=== PATIENT | male | born 1955 | race Caucasian/White ===

== ENCOUNTER → 2016-06-24 | Outpatient (CLI) | payer OTHER ==
[2016-06-24 18:05] LABS: BLOOD UREA NITROGEN 14 mg/dl (7-18); BUN/CREATININE RATIO 14.7 (10-20); CALCIUM 9.4 mg/dl (8.5-10.1); CARBON DIOXIDE 28 mmol/L (21-32); CHLORIDE 103 mmol/L (98-107); CREATININE 0.97 mg/dl (0.60-1.40); GLUCOSE 161 mg/dl (70-99); PHOSPHORUS 3.2 mg/dl (2.5-4.9); SODIUM 137 mmol/L (136-145)
[2016-06-25 06:19] LABS: ESTIMATED AVERAGE GLUCOSE 189 mg/dl; HA1C FLAG Normal (Normal)
== END | disposition home or self-care (01) ==
LOC: C.LABMFLN 14:07
PROVIDERS: ATTEND Family Medicine
DX: E11.9 Type 2 diabetes mellitus without complications (principal)

== ENCOUNTER → 2016-10-01 | Outpatient (CLI) | payer OTHER ==
[2016-10-01 18:06] LABS: BLOOD UREA NITROGEN 16 mg/dl (7-18); CALCIUM 9.1 mg/dl (8.5-10.1); CARBON DIOXIDE 29 mmol/L (21-32); CHLORIDE 103 mmol/L (98-107); GLUCOSE 218 mg/dl (70-99); POTASSIUM 4.4 mmol/L (3.5-5.1); SODIUM 138 mmol/L (136-145)
[2016-10-01 18:09] LABS: CHOLESTEROL 172 mg/dl (0-200); CHOLESTEROL/HDL RATIO 6.9; HDL CHOLESTEROL 25 mg/dl; TRIGLYCERIDES 457 mg/dl (0-150)
[2016-10-02 06:28] LABS: ESTIMATED AVERAGE GLUCOSE 189 mg/dl; HA1C FLAG Normal (Normal)
== END | disposition home or self-care (01) ==
LOC: C.LABMFLN 16:40
PROVIDERS: ATTEND Family Medicine
DX: E78.5 Hyperlipidemia, unspecified (principal); E11.9 Type 2 diabetes mellitus without complications

== ENCOUNTER → 2017-04-01 | Outpatient (CLI) | payer OTHER ==
[2017-04-01 13:02] LABS: BASO % 0.4 %; BASO ABS # 0.03 K/uL (0-0.2); EOS % 2.2 %; EOS ABS # 0.18 K/uL (0-0.5); HEMATOCRIT 46.6 % (42-52); HEMOGLOBIN 16.8 g/dL (14.0-18.0); IG# 0.04 K/uL (0.00-0.02); LYMPH % 43.1 %; LYMPH ABS # 3.47 K/uL (1.2-3.4); MEAN CELL VOLUME 87.9 fL (80-100); MEAN CORPUSCULAR HEMOGLOBIN 31.7 pg (25-34); MEAN CORPUSCULAR HGB CONC 36.1 g/dl (32-36); MONO ABS # 0.48 K/uL (0.11-0.59); NEUT % 47.8 %; NEUT ABS # 3.85 K/uL (1.4-6.5); PLATELET COUNT 181 K/uL (130-400); RED CELL DISTRIBUTION WIDTH CV 12.2 % (11.5-14.5); WHITE BLOOD COUNT 8.05 K/uL (4.8-10.8)
[2017-04-01 13:34] LABS: HEMOGLOBIN A1C 8.2 % (4.5-5.6)
[2017-04-01 14:28] LABS: ALT/SGPT 32 U/L (12-78); AST/SGOT 15 U/L (15-37); BLOOD UREA NITROGEN 17 mg/dl (7-18); CALCIUM 8.8 mg/dl (8.5-10.1); CARBON DIOXIDE 29 mmol/L (21-32); CREATININE 1.09 mg/dl (0.60-1.40); GLUCOSE 160 mg/dl (70-99); POTASSIUM 4.2 mmol/L (3.5-5.1); SODIUM 136 mmol/L (136-145)
[2017-04-01 14:31] LABS: ALKALINE PHOSPHATASE 48 U/L (45-117); TOTAL PROTEIN 7.1 gm/dl (6.4-8.2)
== END | disposition home or self-care (01) ==
LOC: C.LABMFLN 09:00
PROVIDERS: ATTEND Family Medicine
DX: E11.21 Type 2 diabetes mellitus with diabetic nephropathy (principal)

== ENCOUNTER → 2017-06-29 | Outpatient (CLI) | payer OTHER ==
[2017-06-29 18:38] LABS: ALBUMIN 3.9 gm/dl (3.4-5.0); BLOOD UREA NITROGEN 15 mg/dl (7-18); CALCIUM 9.3 mg/dl (8.5-10.1); CARBON DIOXIDE 27 mmol/L (21-32); CREATININE 1.23 mg/dl (0.60-1.40); GLUCOSE 168 mg/dl (70-99); PHOSPHORUS 3.4 mg/dl (2.5-4.9); POTASSIUM 4.1 mmol/L (3.5-5.1); SODIUM 136 mmol/L (136-145)
[2017-06-30 07:38] LABS: HEMOGLOBIN A1C 7.8 % (4.5-5.6)
== END | disposition home or self-care (01) ==
LOC: C.LABMFLN 16:36
PROVIDERS: ATTEND Family Medicine
DX: E11.9 Type 2 diabetes mellitus without complications (principal)

== ENCOUNTER → 2017-10-21 | Outpatient (CLI) | payer OTHER ==
--- NOTE | 2017-10-26 15:00 | EXERCISE STRESS ECHO ---
*NOTICE TO RECEIVING LIBERTARIAN AGENCY This information is strictly Confidential and protected under [place] law. [place] law prohibits you from making any further disclosure of this information unless further disclosure is expressly permitted by the written consent of the person to whom it pertains or is authorized by law. A general authorization for the release of medical or other information is not sufficient for this purpose. Hospital accepts no responsibility if the information is made available to any other person, INCLUDING THE PATIENT. Interpretation Summary * Name: JUNE JUNIOR Study Date: 10/21/2017 11:00 AM BP: 155/94 mmHg * Patient Location: [facility] HR: 101 * : 1955 (M/d/yyyy) Gender: Male Height: 70 in * Age: 62 yrs Ethnicity: CA Weight: 255 lb * Ordering Physician: Ashely Gallardo * Referring Physician: Ashely Gallardo * Performed By: Jia Orona RDCS * * Reason For Study: Shortness of Breath * BSA: 2.3 m2 * -- Conclusions -- * Left ventricular systolic function is normal. * Grade I diastolic dysfunction, (abnormal relaxation pattern). * Normal exercise echocardiogram without evidence of inducible ischemia * Hypertensive response to exercise Procedure Details * ECHOEX, CPT #[id number] * ECHO DOPPLER, CPT #[id number] * ECHO COLOR FLOW, CPT #[id number] Left Ventricular Findings with Stress * Normal exercise echocardiogram without evidence of inducible ischemia Hypertensive response to exercise Left Ventricle * The left ventricle is normal in size. * There is normal left ventricular wall thickness. * Ejection Fraction = 55-60%. * Left ventricular systolic function is normal. * Grade I diastolic dysfunction, (abnormal relaxation pattern). * The left ventricular wall motion is normal at rest. Right Ventricle * The right ventricle is normal in size and function. Atria * The left atrial size is normal. * Right atrial size is normal. Mitral Valve * The mitral valve anatomy is normal. * Significant mitral regurgitation is absent. Tricuspid Valve * The tricuspid valve is not well visualized, but is grossly normal. Aortic Valve * The aortic valve is normal in structure and function. * The aortic valve is trileaflet. * No hemodynamically significant valvular aortic stenosis. * There is no significant aortic regurgitation. Pulmonic Valve * The pulmonic valve is not well visualized. Great Vessels * The aortic root is normal size. Pericardium * There is no pericardial effusion. Stress Parameters * Normal baseline electrocardiogram. * Stress ECG: No ST changes. No arrhythmias. * The stress portion of this study was personally supervised by the undersigned interpreting physician. * Rest heart rate was '101' BPM. * Rest blood pressure was '155/94' * Maximum heart rate achieved was 148 bpm. * Maximum heart rate was 92 % of maximum age-predicted heart rate. * Maximum blood pressure was '210/85' * Total exercise time was '06:11' * Maximum exercise MET level achieved was '7.20' METS * Maximum treadmill speed was '3.40' miles per hour. * Maximum treadmill elevation was '14.00'% grade. Left Ventricular Findings with Stress * Baseline EKG was normal There are no significant ST or T-wave changes during exercise recovery Exercise terminated due to fatigue There was no chest pain reported Baseline echocardiogram was normal with normal LV function There was normal augmentation of all segments without development of regional wall motion abnormalities at peak exertion Khan treadmill score: 6 (low risk) Hypertensive response to exercise MMode 2D Measurements and Calculations IVSd 1.0 cm IVSs 1.7 cm LVIDd 4.0 cm LVIDs 2.9 cm LVPWd 1.5 cm LVPWs 1.5 cm IVS/LVPW 0.67 FS 29.5 % EDV(Teich) 71.9 ml ESV(Teich) 30.9 ml EF(Teich) 57.0 % EDV(cubed) 66.2 ml ESV(cubed) 23.2 ml EF(cubed) 64.9 % % IVS thick 61.8 % % LVPW thick -0.77 % LV mass(C)d 187.3 grams LV mass(C)dI 80.9 grams/m\S\2 LV mass(C)s 166.1 grams LV mass(C)sI 71.8 grams/m\S\2 SV(Teich) 41.0 ml SI(Teich) 17.7 ml/m\S\2 SV(cubed) 43.0 ml SI(cubed) 18.6 ml/m\S\2 Ao root diam 3.5 cm Ao root area 9.6 cm\S\2 ACS 2.0 cm LA dimension 3.7 cm LA/Ao 1.1 LVAd ap4 33.6 cm\S\2 LVLd ap4 8.5 cm EDV(MOD-sp4) 107.8 ml EDV(sp4-el) 112.0 ml LVAs ap4 17.1 cm\S\2 LVLs ap4 7.0 cm ESV(MOD-sp4) 37.2 ml ESV(sp4-el) 35.7 ml EF(MOD-sp4) 65.5 % EF(sp4-el) 68.1 % LVAd ap2 33.8 cm\S\2 LVLd ap2 8.9 cm EDV(MOD-sp2) 106.8 ml EDV(sp2-el) 108.5 ml LVAs ap2 20.3 cm\S\2 LVLs ap2 7.6 cm ESV(MOD-sp2) 46.4 ml ESV(sp2-el) 46.1 ml EF(MOD-sp2) 56.5 % EF(sp2-el) 57.5 % LVLd %diff 4.4 % EDV(MOD-bp) 109.8 ml LVLs %diff 7.9 % ESV(MOD-bp) 43.1 ml EF(MOD-bp) 60.8 % SV(MOD-sp4) 70.6 ml SI(MOD-sp4) 30.5 ml/m\S\2 SV(MOD-sp2) 60.4 ml SI(MOD-sp2) 26.1 ml/m\S\2 SV(MOD-bp) 66.7 ml SI(MOD-bp) 28.8 ml/m\S\2 SV(sp4-el) 76.3 ml SI(sp4-el) 33.0 ml/m\S\2 SV(sp2-el) 62.4 ml SI(sp2-el) 26.9 ml/m\S\2 Doppler Measurements and Calculations MV E max shannon 60.4 cm/sec MV A max shannon 63.8 cm/sec MV E/A 0.95 MV dec time 0.25 sec Ao V2 max 129.3 cm/sec Ao max PG 6.7 mmHg Ao max PG (full) 1.6 mmHg LV V1 max PG 5.1 mmHg LV V1 max 112.9 cm/sec PA V2 max 89.0 cm/sec PA max PG 3.2 mmHg TR max shannon 152.4 cm/sec
== END | disposition home or self-care (01) ==
LOC: C.CPL 10:54
PROVIDERS: ATTEND Family Medicine
DX: R06.02 Shortness of breath (principal)